=== PATIENT | female | born 1960 | race Caucasian/White ===

== ENCOUNTER → 2017-05-24 | Outpatient (CLI) | payer MEDICARE ==
[~2017-05-24] MED LIST: ALBUTEROL17 GM INH; ALPRAZOLAM PO; ATIVAN2 M1 PO; CYMBALTA PO; DIAZEPAM PO; FLONASE 0.05% N16 G1; HYDROCORTISONE30 G1 TOP; KLONOPIN PO; LUNESTA PO; PAXIL PO; PRAVACHOL PO; PROTONIX PO; REMERON30 MG PO; REQUIP1 MG PO; SEROQUEL PO; SYMBICORT INH; ZOCOR PO; ZYPREXA PO; ZYRTEC PO; ZYRTEC10 M1 PO
--- NOTE | ~2017-05-24 | MY29 ---
[facility] A Service of [facility] RADIOLOGY TEXT RESULTS PATIENT: ESVIN BONNER LOCATION: [facility] : 64 UNIT #: [id number] AGE: [address]: Brigette Caicedo MD SEX: F ORDER DR: [id number] [place], [place] [address] [id number] O MR#: [id number] Acc #: [id number] NAME: ESVIN BONNER : 1960 SEX: F STUDY DATE/TIME: 05/24/2017 12:06 UNIT: [facility] ROOM: STUDY DESCRIPTION: MY CHRISTINE SCREENING W/ CAD BILAT Attending Physician: Brigette Caicedo M.D. Referring Physician: Brigette Caicedo M.D. Ordering Physician: Brigette Caicedo M.D. Primary Care Physician: Brigette Caicedo M.D. MEDICAL IMAGING REPORT This report is preliminary unless electronic signature is present EXAM Digital screening mammogram, 05/24/2017 HISTORY 56-year-old woman no risk elevation. Annual screening. COMPARISON 01/11/2007, 05/19/2016 FINDINGS Digital imaging of each breast was completed utilizing screening protocol. Review includes FDA-approved CAD device. Breast parenchyma is predominantly fatty replaced. Subareolar duct opacities are stable bilaterally. There is no interval occurring breast mass. Single intramammary lymph nodes are stable in each breast. There is no architectural distortion. IMPRESSION Negative mammogram. Annual screening recommended. Patients over the age of 40 are entered into a reminder system with target due date for the next mammogram. A result letter will also be sent to the patient. BIRADS: 1 Negative Dictated by... Williams Timmons M.D. THIS IS AN ELECTRONICALLY VERIFIED REPORT [facility] A Service [facility] RADIOLOGY TEXT RESULTS PATIENT: ESVIN BONNER LOCATION: [facility] : 64 UNIT #: [id number] AGE: [address]: Brigette Caicedo MD SEX: F ORDER DR: Williams Timmons M.D. at 05/25/2017 1:04 PM SANTIAGO/rosemary TD: 05/25/2017 00:01 JOB #: [id number] MEDICAL IMAGING REPORT Page 1 of 1 COPY
== END | disposition home or self-care (01) ==
LOC: CWCC 11:56
DX: Z12.31 Encounter for screening mammogram for malignant neoplasm of breast (principal)
CPT/HCPCS: G0202